=== PATIENT | female | born 1945 | race Caucasian/White ===

== ENCOUNTER 2017-04-16 16:31 | Emergency (ER) | payer BC ==
[~2017-04-16] VITALS: Ht 160 cm; Wt 67.4 kg
[~2017-04-16 16:31] MED LIST: ATR25 PO; CGN1 PO; CLON0.5T3 PO; CLON1TAB3 PO; CLR10 PO; ESCI1TAB10 PO; FLUV100T12 PO; GLC500 PO; LEVO125T57 PO; PANT40TA PO; RISP0.5T10 PO; RISP1TAB68 PO; SIMV80TA2 PO
[2017-04-16 16:37] VITALS: TEMP 37; Ht 160 cm; Wt 67.4 kg
[2017-04-16] MEDS ORDERED: LORAZEPAM 0.5 MG TAB SL STA (16:54)
[2017-04-16] MEDS ORDERED: SODIUM CHLORIDE 0.9% 500ML 500 ML IV STA (16:54)
[2017-04-16] MEDS ORDERED: PROM25TA9 PO (17:18)
[2017-04-16] MEDS ORDERED: HYDRCRE28 TOP (17:18)
[2017-04-16] MEDS ORDERED: KETO0.5S33 OP (17:18)
[2017-04-16] MEDS ORDERED: SIMV40TA2 PO (17:18)
[2017-04-16] MEDS ORDERED: FAMO20TA11 PO (17:18)
[2017-04-16] MEDS ORDERED: CYAN10005 PO (17:18)
[2017-04-16] MEDS ORDERED: DICY10CA55 PO (17:18)
[2017-04-16] MEDS ORDERED: LISI-729 PO (17:18)
[2017-04-16] MEDS ORDERED: PROM1SUP19 PR (17:18)
[2017-04-16] MEDS ORDERED: SERT50TA PO (17:18)
[2017-04-16] MEDS ORDERED: FE B28CA PO (17:18)
[2017-04-16] MEDS ORDERED: LEVO75TA PO (17:18)
[2017-04-16] MEDS ORDERED: DORZ1SOL6 OP (17:18)
[2017-04-16 17:42] LABS: URINE APPEARANCE CLEAR (CLEAR); URINE BILIRUBIN NEG (NEG); URINE COLOR YELLOW; URINE EPITHELIAL CELL AUTO 20-30 /lpf (0-5); URINE NITRITE NEG (NEG); URINE SPECIFIC GRAVITY 1.024 (1.000-1.030); UROBILINOGEN NEG (NEG); ZZUR CULT IF INDIC CLEAN CATCH NO
[2017-04-16 17:45] LABS: MANUAL MICROSCOPIC REQUIRED? NO; REVIEW REQ? YES
[2017-04-16 18:06] LABS: BASO % 0.3 %; BASO ABS # 0.02 K/uL (0-0.2); COMPLETE YES; EOS % 0.8 %; HEMATOCRIT 34.8 % (37-47); IG% 0.1 %; LYMPH % 29.1 %; LYMPH ABS # 2.16 K/uL (1.2-3.4); MEAN CELL VOLUME 91.6 fL (80-100); MEAN CORPUSCULAR HEMOGLOBIN 30.3 pg (25-34); MEAN PLATELET VOLUME 8.3 fL (7.4-10.4); MONO % 5.8 %; NEUT % 63.9 %; PLATELET COUNT 265 K/uL (130-400); WHITE BLOOD COUNT 7.43 K/uL (4.8-10.8)
[2017-04-16 18:32] LABS: ALT/SGPT 18 U/L (12-78); AST/SGOT 10 U/L (15-37); BLOOD UREA NITROGEN 12 mg/dl (7-18); BUN/CREATININE RATIO 11.1 (10-20); CARBON DIOXIDE 29 mmol/L (21-32); CHLORIDE 106 mmol/L (98-107); GLUCOSE 124 mg/dl (70-99); MAGNESIUM 2.3 mg/dl (1.8-2.4); POTASSIUM 4.1 mmol/L (3.5-5.1); SODIUM 139 mmol/L (136-145)
[2017-04-16 18:38] LABS: ALKALINE PHOSPHATASE 63 U/L (45-117)
--- NOTE | 2017-04-16 18:46 | EMERGENCY ROOM VISIT NOTE ---
History Report prepared by Angel: Mary Vargas Under the Supervision of: Dr. Julio Cesar Betancur M.D. First contact with patient: 16:45 Chief Complaint: NAUSEA Stated Complaint: CRAMPS,NAUSEA History of Present Illness The patient is a 72 year old female who presents to the Emergency Room with complaints of worsening nausea for the past couple of weeks. The patient states that she has "bad nerves." She takes Zoloft, BuSpar, and Luvox for her anxiety. She was taking 0.5 mg BID of Ativan. Her psychiatrist recently took her off of the Ativan about 6-8 weeks ago. She states that he took her off of it "because I 'm old." The patient notes that since then she has been having worsening anxiety , diffuse lower abdominal cramping, and nausea. This has been pretty constant but worsening over the last 2 weeks and then much worse today. The patient denies any recent falls or injuries. She denies headache, urinary symptoms, and SI or HI. Source of History: patient Onset: the past 6-8 weeks Position: other (global) Quality: other (nausea) Timing: worsening Modifying Factors (Worsening): other (recent changes to medications) Associated Symptoms: + abdominal pain, No headache, No urinary symptoms Note: Pt notes worsening anxiety. Pt denies SI or HI. Review of Systems See HPI for pertinent positives & negatives. A total of 10 systems reviewed and were otherwise negative. Past Medical & Surgical Medical Problems: (1) Depressive disorder (2) Obsessive-compulsive disorder Family History Non-pertinent due to advanced age. Social History Smoking Status: Never Smoker Marital Status: Current/Historical Medications Scheduled Cyanocobalamin (Vitamin B-12), 1,000 MCG PO DAILY Dorzolamide Hcl-Timolol Maleat (Cosopt Oph), 1 DROPS OP BID Famotidine (Pepcid), 20 MG PO DAILY Fe Bisglycinate Chelate-Vit C- (Gentle Iron), 1 CAP PO DAILY Fluvoxamine Maleate (Luvox), 100 MG PO QAM Hydrocortisone (Rectal) (Proctozone-Hc), 1 APPLN TOP PRN Ketorolac Tromethamine (Ophth) (Acular Oph), 1 DROP OP QID Levothyroxine Sodium (Synthroid), 75 MCG PO DAILY Lisinopril (Zestril), 5 MG PO DAILY Sertraline (Zoloft), 50 MG PO DAILY Simvastatin (Zocor), 40 MG PO QPM Scheduled PRN Dicyclomine Hcl (Bentyl), 10 MG PO Q6H PRN for cramping Promethazine (Phenergan Suppository), 25 MG NM Q8 PRN for Nausea Promethazine Hcl (Phenergan), 25 MG PO TID PRN for Nausea Allergies Coded Allergies: Penicillins (Verified Allergy, Mild, UNK, 10/30/11) Physical Exam Vital Signs Date Time Temp Pulse Resp B/P Pulse Ox O2 Delivery O2 Flow Rate FiO2 04/16/17 18:56 78 18 145/82 98 04/16/17 16:37 37.0 88 20 131/75 98 Room Air Physical Exam GENERAL: Patient is anxious appearing and in minimal distress. HEENT: No acute trauma, normocephalic atraumatic, mucous membranes moist, no nasal congestion, no scleral icterus. NECK: No stridor, no adenopathy, no meningismus, trachea is midline. LUNGS: No dyspnea. Clear to auscultation and equal bilaterally. No wheeze, no rhonchi. HEART: Regular rate and rhythm. No murmurs, rubs, gallops appreciated. ABDOMEN: Soft, vague suprapubic tenderness to palpation, bowel sounds positive, no masses appreciated, no peritonitis. BACK: No midline tenderness, no CVA tenderness EXTREMITIES: Normal motion all extremities, no cyanosis, no edema. NEUROLOGIC: Alert and oriented, no acute motor or sensory deficits, no focal weakness, cranial nerves grossly intact. SKIN: No rash, no jaundice, no diaphoresis. Medical Decision & Procedures Laboratory Results 04/16/17 17:54 Red Blood Count 3.80, Mean Corpuscular Volume 91.6, Mean Corpuscular Hemoglobin 30.3, Mean Corpuscular Hemoglobin Concent 33.0, Mean Platelet Volume 8.3, Neutrophils (%) (Auto) 63.9, Lymphocytes (%) (Auto) 29.1, Monocytes (%) (Auto) 5.8, Eosinophils (%) (Auto) 0.8, Basophils (%) (Auto) 0.3, Neutrophils # (Auto) 4.75, Lymphocytes # (Auto) 2.16, Monocytes # (Auto) 0.43, Eosinophils # (Auto) 0.06, Basophils # (Auto) 0.02 04/16/17 17:54 Test 04/16/17 17:16 04/16/17 17:54 Urine Color YELLOW Urine Appearance CLEAR (CLEAR) Urine pH 5.0 (4.5-7.5) Urine Specific [place] 1.024 (1.000-1.030) Urine Protein NEG (NEG) Urine Glucose (UA) NEG (NEG) Urine Ketones TRACE (NEG) Urine Occult Blood NEG (NEG) Urine Nitrite NEG (NEG) Urine Bilirubin NEG (NEG) Urine Urobilinogen NEG (NEG) Urine Leukocyte Esterase TRACE (NEG) Urine WBC (Auto) 1-5 /hpf (0-5) Urine RBC (Auto) 0-4 /hpf (0-4) Urine Hyaline Casts (Auto) 1-5 /lpf (0-5) Urine Epithelial Cells (Auto) 20-30 /lpf (0-5) Urine Bacteria (Auto) NEG (NEG) Urine Crystals CALCIUM OXALATE (NONE White Blood Count 7.43 K/uL (4.8-10.8) Red Blood Count 3.80 M/uL (4.2-5.4) Hemoglobin 11.5 g/dL (12.0-16.0) Hematocrit 34.8 % (37-47) Mean Corpuscular Volume 91.6 fL (80-100) Mean Corpuscular Hemoglobin 30.3 pg (25-34) Mean Corpuscular Hemoglobin Concent 33.0 g/dl (32-36) Platelet Count 265 K/uL (130-400) Mean Platelet Volume 8.3 fL (7.4-10.4) Neutrophils (%) (Auto) 63.9 % Lymphocytes (%) (Auto) 29.1 % Monocytes (%) (Auto) 5.8 % Eosinophils (%) (Auto) 0.8 % Basophils (%) (Auto) 0.3 % Neutrophils # (Auto) 4.75 K/uL (1.4-6.5) Lymphocytes # (Auto) 2.16 K/uL (1.2-3.4) Monocytes # (Auto) 0.43 K/uL (0.11-0.59) Eosinophils # (Auto) 0.06 K/uL (0-0.5) Basophils # (Auto) 0.02 K/uL (0-0.2) RDW Standard Deviation 44.5 fL (36.4-46.3) RDW Coefficient of Variation 13.3 % (11.5-14.5) Immature Granulocyte % (Auto) 0.1 % Immature Granulocyte # (Auto) 0.01 K/uL (0.00-0.02) Anion Gap 4.0 mmol/L (3-11) Est Creatinine Clear Calc Drug Dose 41.4 ml/min Estimated GFR () 57.3 Estimated GFR (Non- 49.4 BUN/Creatinine Ratio 11.1 (10-20) Calcium Level 9.0 mg/dl (8.5-10.1) Magnesium Level 2.3 mg/dl (1.8-2.4) Total Bilirubin 0.2 mg/dl (0.2-1) Direct Bilirubin < 0.1 mg/dl (0-0.2) Aspartate Amino Transf (AST/SGOT) 10 U/L (15-37) Alanine Aminotransferase (ALT/SGPT) 18 U/L (12-78) Alkaline Phosphatase 63 U/L (45-117) Troponin I < 0.015 ng/ml (0-0.045) Total Protein 6.8 gm/dl (6.4-8.2) Albumin 3.9 gm/dl (3.4-5.0) Lipase 186 U/L (73-393) Laboratory results as reviewed by me. Medications Administered Medications (Trade) Dose Ordered Sig/Crys Route Start Time Stop Time Status Last Admin Dose Admin Lorazepam 0.5 mg 0.5 mg NOW STAT SL 04/16/17 16:54 04/16/17 16:57 DC 04/16/17 16:54 0.5 MG Sodium Chloride (Nss 500ml) 500 ml @ 999 mls/hr Q31M STAT IV 04/16/17 16:54 04/16/17 17:24 DC 04/16/17 16:54 999 MLS/HR ECG Indication: nausea Rate (beats per minute): 73 Rhythm: normal sinus Findings: no acute ischemic change, no ectopy ED Course 5: The patient was evaluated in room A10. A complete history and physical exam was performed. 4: NSS 500 ml @ 999 mls/hr IV, Ativan 0.5 mg SL 1828: I reevaluated the patient. She feels vastly improved. She admits that she has many Ativan at home, which she will take if necessary. 184: I reassessed the patient at this time. She is feeling better and resting comfortably. I discussed the results and treatment plan with the patient. I answered all pertaining questions that she had. She expressed understanding and verbalized agreement. The patient will be discharged home. Medical Decision Differential: Sepsis, Infectious (UTI/Pneumonia/Meningitis/etc), Metabolic/ Electrolyte Abnormality, Cardiac, Hepatic, Endocrine, Toxicologic, Neurologic, amongst other pathologies entertained. 72 yr old pleasant female with long anxiety/mental health history who recently was taken off her Ativan cold turkey. Since then with worsening anxiety, tremors, fatigue, nausea, etc. Work-up is benign. She has complete resolution of symptoms with Ativan PO. Case Management in to talk to patient about outpatient follow up with Psychiatry. We discussed using Ativan sparingly at home, which she notes she has plenty of. She is aware the risks of them. She is aware she can return at any time if worsening or other concerns. Patient and daughter are comfortable with outpatient treatment. Impression Primary Impression: Anxiety Additional Impressions: Fatigue Dehydration Scribe Attestation The scribe's documentation has been prepared under my direction and personally reviewed by me in its entirety. I confirm that the note above accurately reflects all work, treatment, procedures, and medical decision making performed by me. Departure Information Dispostion Home / Self-Care Forms HOME CARE DOCUMENTATION FORM, IMPORTANT VISIT INFORMATION Patient Instructions Anxiety Body Response, My [facility] Additional Instructions We are always here to help. If you feel you can no longer handle your symptoms at home or feel further emergency evaluation is necessary, return for further evaluation or call 911. You have received a benzodiazepine pain medication. These medications may cause drowsiness and should not be used with other sedative medications. Do not drive, drink alcohol, perform dangerous activities, nor make important decisions after taking these medications. terminal gauger use or inappropriate use may lead to addiction. Problem Qualifiers Additional Impressions: Fatigue Fatigue type: unspecified Qualified Codes: R53.83 - Other fatigue
[2017-04-16 18:56] VITALS: BP 145/82; PULSE 78; O2SAT 98
== END 2017-04-16 18:58 | disposition home or self-care (01) ==
LOC: C.EDB 16:32 → C.EDA 18:58
DX: F41.9 Anxiety disorder, unspecified (principal); E86.0 Dehydration; R53.83 Other fatigue; Z79.899 Other long term (current) drug therapy; F32.9 Major depressive disorder, single episode, unspecified; F42.9 Obsessive-compulsive disorder, unspecified

== ENCOUNTER 2017-04-22 11:28 | Emergency (ER) | payer BC ==
[~2017-04-22] VITALS: Ht 162.6 cm; Wt 67.1 kg
[~2017-04-22 11:28] MED LIST changes: -ATR25 PO; -CGN1 PO; -CLON0.5T3 PO; -CLON1TAB3 PO; -CLR10 PO; +CYAN10005 PO; +DICY10CA55 PO; +DORZ1SOL6 OP; -ESCI1TAB10 PO; +FAMO20TA11 PO; +FE B28CA PO; -GLC500 PO; +HYDRCRE28 TOP; +KETO0.5S33 OP; -LEVO125T57 PO; +LEVO75TA PO; +LISI-729 PO; -PANT40TA PO; +PROM1SUP19 PR; +PROM25TA9 PO; -RISP0.5T10 PO; -RISP1TAB68 PO; +SERT50TA PO; +SIMV40TA2 PO; -SIMV80TA2 PO
[2017-04-22 11:32] VITALS: TEMP 36.5; Ht 162.6 cm; Wt 67.1 kg
[2017-04-22] MEDS ORDERED: ONDA4TAB46 PO (12:00)
[2017-04-22] MEDS ORDERED: LORAZEPAM 0.5 MG TAB SL STA (12:07)
--- NOTE | 2017-04-22 12:09 | EMERGENCY ROOM VISIT NOTE ---
History Report prepared by Angel: Yumiko Shore Under the Supervision of: Dr. José Luis Fermin M.D. First contact with patient: 11:58 Chief Complaint: MENTAL HEALTH EVALUATION Stated Complaint: CRAMPS History of Present Illness The patient is a 72 year old female who presents to the Emergency Room for a mental health evaluation after feeling anxious and depressed beginning 3 months ago. The patient reports that she was taken off of Lorazepam 3 months ago and since then she has been feeling nausea, cramping from anxiety, and increasing depression. She denies any suicidal or homicidal ideation. She notes that she has been seen inpatient for psychiatric care before. The patient states that she recently was prescribed Lorazepam again but has had difficulty filling her prescription. Source of History: patient Onset: 3 months ago Position: other (mental health) Quality: other (anxiety and depression) Timing: constant, worsening Modifying Factors (Worsening): other (no Lorazepam) Associated Symptoms: + nausea Note: She complains of cramping from anxiety, and increasing depression. She denies any suicidal or homicidal ideation. Review of Systems See HPI for pertinent positives & negatives. A total of 10 systems reviewed and were otherwise negative. Past Medical & Surgical Medical Problems: (1) Depressive disorder (2) Obsessive-compulsive disorder Family History No pertinent family history stated. Social History Smoking Status: Never Smoker Marital Status: Housing Status: lives with significant other Occupation Status: retired Current/Historical Medications Scheduled Cyanocobalamin (Vitamin B-12), 1,000 MCG PO DAILY Dorzolamide Hcl-Timolol Maleat (Cosopt Oph), 1 DROPS OP BID Famotidine (Pepcid), 20 MG PO DAILY Fe Bisglycinate Chelate-Vit C- (Gentle Iron), 1 CAP PO DAILY Fluvoxamine Maleate (Luvox), 100 MG PO QAM Hydrocortisone (Rectal) (Proctozone-Hc), 1 APPLN TOP PRN Ketorolac Tromethamine (Ophth) (Acular Oph), 1 DROP OP QID Levothyroxine Sodium (Synthroid), 75 MCG PO DAILY Lisinopril (Zestril), 5 MG PO DAILY Metformin Hcl Er (Glucophage Er), 1,000 MG PO BID Sertraline (Zoloft), 50 MG PO DAILY Simvastatin (Zocor), 40 MG PO QPM Scheduled PRN Dicyclomine Hcl (Bentyl), 10 MG PO Q6H PRN for cramping Hydroxyzine Pamoate (Vistaril), 1 CAP PO TID PRN for Anxiety Ondansetron Hcl (Zofran), 4 MG PO UD PRN for Nausea Promethazine Hcl (Phenergan), 25 MG PO TID PRN for Nausea Allergies Coded Allergies: Penicillins (Verified Allergy, Mild, UNK, 04/22/17) Physical Exam Vital Signs Date Time Temp Pulse Resp B/P Pulse Ox O2 Delivery O2 Flow Rate FiO2 04/22/17 19:18 72 18 155/80 96 04/22/17 17:06 69 18 157/84 96 Room Air 04/22/17 13:30 82 16 132/75 96 Room Air 04/22/17 11:32 36.5 84 18 148/82 96 Room Air Physical Exam GENERAL: Patient is a healthy-appearing well-nourished HEAD: Normocephalic atraumatic EYES: Ocular movements intact pupils equal and react to light OROPHARYNX mucous membranes are moist no exudates present no erythema or edema present NECK: Supple no nuchal rigidity CHEST: Good equal expansion LUNGS: Clear and equal to auscultation CARDIAC: Normal S1 and S2 ABDOMEN: Soft nontender no guarding BACK: No CVA tenderness EXTREMITIES: No pain upon palpation normal muscle strength in all groups no clubbing cyanosis or edema NEURO: Patient is following commands is answering questions appropriately. Alert and oriented x3 Cranial Nerves 2-12 grossly intact PSYCH: No suicidal or homicidal ideation. Medical Decision & Procedures Laboratory Results 04/22/17 12:55 Red Blood Count 3.65, Mean Corpuscular Volume 91.2, Mean Corpuscular Hemoglobin 31.2, Mean Corpuscular Hemoglobin Concent 34.2, Mean Platelet Volume 8.2, Neutrophils (%) (Auto) 71.6, Lymphocytes (%) (Auto) 21.0, Monocytes (%) (Auto) 5.5, Eosinophils (%) (Auto) 1.3, Basophils (%) (Auto) 0.3, Neutrophils # (Auto) 4.99, Lymphocytes # (Auto) 1.46, Monocytes # (Auto) 0.38, Eosinophils # (Auto) 0.09, Basophils # (Auto) 0.02 04/22/17 12:55 Test 04/22/17 00:00 04/22/17 12:18 04/22/17 12:55 Urine Color YELLOW Urine Appearance CLEAR (CLEAR) Urine pH 7.5 (4.5-7.5) Urine Specific [place] 1.014 (1.000-1.030) Urine Protein NEG (NEG) Urine Glucose (UA) NEG (NEG) Urine Ketones NEG (NEG) Urine Occult Blood NEG (NEG) Urine Nitrite NEG (NEG) Urine Bilirubin NEG (NEG) Urine Urobilinogen NEG (NEG) Urine Leukocyte Esterase NEG (NEG) Urine Opiates Screen NEG (NEG) Urine Methadone, Qualitative NEG (NEG) Urine Barbiturates NEG (NEG) Urine Phencyclidine (PCP) Level NEG (NEG) Ur Amphetamine/Methamphetamine NEG (NEG) MDMA (Ecstasy) Screen NEG (NEG) Urine Benzodiazepines Screen NEG (NEG) Urine Cocaine Metabolite NEG (NEG) Urine Marijuana (THC) NEG (NEG) Bedside Glucose 125 mg/dl (70-90) White Blood Count 6.96 K/uL (4.8-10.8) Red Blood Count 3.65 M/uL (4.2-5.4) Hemoglobin 11.4 g/dL (12.0-16.0) Hematocrit 33.3 % (37-47) Mean Corpuscular Volume 91.2 fL (80-100) Mean Corpuscular Hemoglobin 31.2 pg (25-34) Mean Corpuscular Hemoglobin Concent 34.2 g/dl (32-36) Platelet Count 206 K/uL (130-400) Mean Platelet Volume 8.2 fL (7.4-10.4) Neutrophils (%) (Auto) 71.6 % Lymphocytes (%) (Auto) 21.0 % Monocytes (%) (Auto) 5.5 % Eosinophils (%) (Auto) 1.3 % Basophils (%) (Auto) 0.3 % Neutrophils # (Auto) 4.99 K/uL (1.4-6.5) Lymphocytes # (Auto) 1.46 K/uL (1.2-3.4) Monocytes # (Auto) 0.38 K/uL (0.11-0.59) Eosinophils # (Auto) 0.09 K/uL (0-0.5) Basophils # (Auto) 0.02 K/uL (0-0.2) RDW Standard Deviation 43.5 fL (36.4-46.3) RDW Coefficient of Variation 13.0 % (11.5-14.5) Immature Granulocyte % (Auto) 0.3 % Immature Granulocyte # (Auto) 0.02 K/uL (0.00-0.02) Anion Gap 5.0 mmol/L (3-11) Est Creatinine Clear Calc Drug Dose 42.3 ml/min Estimated GFR () 57.3 Estimated GFR (Non- 49.4 BUN/Creatinine Ratio 11.1 (10-20) Calcium Level 8.7 mg/dl (8.5-10.1) Total Bilirubin 0.5 mg/dl (0.2-1) Direct Bilirubin 0.1 mg/dl (0-0.2) Aspartate Amino Transf (AST/SGOT) 9 U/L (15-37) Alanine Aminotransferase (ALT/SGPT) 17 U/L (12-78) Alkaline Phosphatase 70 U/L (45-117) Total Protein 6.8 gm/dl (6.4-8.2) Albumin 3.9 gm/dl (3.4-5.0) Thyroid Stimulating Hormone (TSH) 3.100 uIu/ml (0.300-4.500) Ethyl Alcohol mg/dL < 3.0 mg/dl (0-3) Labs reviewed by ED physician. Medications Administered Medications (Trade) Dose Ordered Sig/Crys Route Start Time Stop Time Status Last Admin Dose Admin Lorazepam (Ativan Tab) 0.5 mg NOW STAT SL 04/22/17 12:07 04/22/17 12:08 DC 04/22/17 12:15 0.5 MG Ondansetron HCl (Zofran Odt) 4 mg ONE STAT PO 04/22/17 17:29 04/22/17 17:31 DC 04/22/17 17:53 4 MG Hydroxyzine HCl (Vistaril Tab) 25 mg NOW STAT PO 04/22/17 17:29 04/22/17 17:31 DC 04/22/17 17:53 25 MG Dicyclomine HCl (Bentyl Tab) 10 mg NOW STAT PO 04/22/17 17:29 04/22/17 17:31 DC 04/22/17 17:54 10 MG Metformin HCl (Glucophage Tab) 1,000 mg NOW STAT PO 04/22/17 17:31 04/22/17 17:32 DC 04/22/17 17:54 1,000 MG ED Course 1158: Past medical records reviewed. The patient was evaluated in room A5. A complete history and physical examination was performed. 1207: Ativan Tab 0.5mg SL. 1729: Bentyl Tab 10mg PO, Vistaril Tab 25mg PO, Zofran Odt 4mg PO. 1731: Metformin HCl 1000mg PO. 1739: The patient will be transferred to [facility]. 1804: Upon reexamination the patient is doing well. I discussed results and treatment plan with the patient. She verbalizes agreement and understanding. The patient will be evaluated at [facility] for further management. Medical Decision Differential diagnosis: Etiologies such as mood disorder, infection, hypoglycemia, electrolyte abnormalities, cardiac sources, intracerebral event, toxicologic, neurologic, as well as others were entertained. This is a 72-year-old female who presents emergency department complaining of anxiety. The patient denies being suicidal or homicidal. She was given Ativan for her anxiety in the emergency department. I do believe that the patient can be discharged home for follow-up with her therapist. The patient was also independently evaluated by case management who also felt that the patient could be accepted at [facility]. Patient was in agreement with the treatment plan. Impression Primary Impression: Mood disorder Scribe Attestation The scribe's documentation has been prepared under my direction and personally reviewed by me in its entirety. I confirm that the note above accurately reflects all work, treatment, procedures, and medical decision making performed by me. Departure Information Dispostion Mental Health Acute Care Referrals No Doctor, Assigned (PCP) Patient Instructions My [facility]
[2017-04-22 12:40] LABS: URINE APPEARANCE CLEAR (CLEAR); URINE BILIRUBIN NEG (NEG); URINE COLOR YELLOW; URINE NITRITE NEG (NEG); URINE PH 7.5 (4.5-7.5); URINE SPECIFIC GRAVITY 1.014 (1.000-1.030); UROBILINOGEN NEG (NEG)
[2017-04-22] MEDS ORDERED: HYDR25CA PO (12:44)
[2017-04-22 12:56] LABS: MANUAL MICROSCOPIC REQUIRED? NO; REVIEW REQ? NO
[2017-04-22 13:06] LABS: BASO % 0.3 %; BASO ABS # 0.02 K/uL (0-0.2); COMPLETE YES; EOS % 1.3 %; HEMATOCRIT 33.3 % (37-47); IG% 0.3 %; LYMPH ABS # 1.46 K/uL (1.2-3.4); MEAN CELL VOLUME 91.2 fL (80-100); MEAN CORPUSCULAR HEMOGLOBIN 31.2 pg (25-34); MEAN CORPUSCULAR HGB CONC 34.2 g/dl (32-36); MEAN PLATELET VOLUME 8.2 fL (7.4-10.4); MONO % 5.5 %; NEUT % 71.6 %; PLATELET COUNT 206 K/uL (130-400); RED BLOOD COUNT 3.65 M/uL (4.2-5.4); WHITE BLOOD COUNT 6.96 K/uL (4.8-10.8)
[2017-04-22 13:26] LABS: BUN/CREATININE RATIO 11.1 (10-20); CALCIUM 8.7 mg/dl (8.5-10.1); CREATININE 1.1 mg/dl (0.60-1.20); POTASSIUM 4.9 mmol/L (3.5-5.1)
[2017-04-22 13:28] LABS: BENZODIAZEPINE, URINE NEG (NEG); COCAINE,URINE NEG (NEG); PHENCYCLIDINE, URINE NEG (NEG)
[2017-04-22 13:35] LABS: THYROID STIMULATING HORMONE 3.1 uIu/ml (0.300-4.500)
[2017-04-22] MEDS ORDERED: METF500T5 PO (17:27)
[2017-04-22] MEDS ORDERED: ONDANSETRON 4MG OD TAB PO STA (17:29)
[2017-04-22] MEDS ORDERED: hydrOXYzine HCL 25 MG TAB PO STA (17:29)
[2017-04-22] MEDS ORDERED: DICYCLOMINE HCL 20 MG TAB PO STA (17:29)
[2017-04-22] MEDS ORDERED: METFORMIN HCL 500 MG TAB PO STA (17:31)
[2017-04-22 19:18] VITALS: BP 155/80; PULSE 72; O2SAT 96
== END 2017-04-22 19:10 ==
LOC: C.EDB 11:29 → C.EDA 19:10
DX: F39 Unspecified mood [affective] disorder (principal); F42.9 Obsessive-compulsive disorder, unspecified; Z79.899 Other long term (current) drug therapy

== ENCOUNTER 2017-06-07 14:41 | Emergency (ER) | payer BC ==
[~2017-06-07] VITALS: Ht 160 cm; Wt 68.4 kg
[~2017-06-07 14:41] MED LIST changes: +HYDR25CA PO; +METF500T5 PO; +ONDA4TAB46 PO; -PROM1SUP19 PR
[2017-06-07 14:48] VITALS: TEMP 36.6; Ht 160 cm; Wt 68.4 kg
--- NOTE | 2017-06-07 15:45 | EMERGENCY ROOM VISIT NOTE ---
History Report prepared by Angel: Cheli Parisi Under the Supervision of: Dr. Mario Perry M.D. First contact with patient: 15:04 Chief Complaint: MENTAL HEALTH EVALUATION Stated Complaint: ANXIETY History of Present Illness The patient is a 72 year old female who presents to the Emergency Room for a mental health evaluation. The patient states that she has suffered from anxiety and depression for many years. Her anxiety has been worsening since December and she has been experiencing anxiety attacks everyday. She notes these attacks to cause daily worrying and nausea. The patient was on Lorazepam 1 mg a day until she was taken off the end of December by her old psychiatrist. She states since then her symptoms have worsened. Today the patient also experienced lightheadedness with her anxiety attack. She had trouble getting out of bed, staggering gait and trouble balancing. The patient has switched psychiatrist and was put on a new medication which she states is not helping. She states that she was at [facility] during the end of March for an anxiety attack. She denies hallucinations, suicidal ideation, homicidal ideation, fevers, chills, shortness of breath or chest pain. Source of History: patient Onset: today Position: other (global) Quality: other (anxiety attack) Associated Symptoms: + nausea, No fevers, No chills, No SOB Note: The patient is experiencing lightheadedness. Review of Systems All systems have been listed, reviewed, and are negative other than those previously mentioned. Please see Additional Medical History Sheet. Past Medical & Surgical Medical Problems: (1) Depressive disorder (2) Obsessive-compulsive disorder Family History Patient reports no known family medical history. Social History Smoking Status: Never Smoker Marital Status: Housing Status: lives with significant other Occupation Status: retired Current/Historical Medications Scheduled Cyanocobalamin (Vitamin B-12), 1,000 MCG PO DAILY Famotidine (Pepcid), 40 MG PO DAILY Fe Bisglycinate Chelate-Vit C- (Gentle Iron), 1 CAP PO DAILY Levothyroxine Sodium (Synthroid), 75 MCG PO DAILY Lisinopril (Zestril), 5 MG PO DAILY Metformin Hcl Er (Glucophage Er), 1,000 MG PO BID Simvastatin (Zocor), 40 MG PO QPM Trazodone Hcl (Trazodone), 50 MG PO HS Scheduled PRN Chlorpromazine Hcl (Thorazine), 10 MG PO TID PRN for Anxiety Dicyclomine Hcl (Bentyl), 10 MG PO Q6H PRN for cramping Hydroxyzine Pamoate (Vistaril), 1 CAP PO TID PRN for Anxiety Promethazine Hcl (Phenergan), 25 MG PO TID PRN for Nausea Allergies Coded Allergies: Penicillins (Verified Allergy, Mild, UNK, 06/07/17) Physical Exam Vital Signs Date Time Temp Pulse Resp B/P (MAP) Pulse Ox O2 Delivery O2 Flow Rate FiO2 06/07/17 19:26 74 19 121/74 99 06/07/17 14:48 36.6 90 17 124/68 99 Room Air Physical Exam GENERAL: Patient awake, alert, oriented x 3. Patient follows commands. Patient does not appear toxic. Patient is adequately hydrated and well- nourished. SKIN: No erythema, pallor, cyanosis or rash HEENT: Normal head, pupils equal, reactive to light and accommodation. Ears normal. Oral cavity and posterior pharynx appear normal. Neck: Without adenopathy, no neck vein distention. LUNGS: Clear to auscultation. No wheezes, no rales, no rhonchi. HEART: No murmurs. No gallops. No rubs ABDOMEN: No masses, no rebound, no hepatomegaly or splenomegaly. EXTREMITIES: No signs of trauma. No pedal or pretibial edema. No calf or thigh tenderness. NEUROLOGIC: Cranial nerves II-XII within normal limits. No gross motor sensory function deficits. PSYCH: The patient appears anxious. She denies suicidal or homicidal ideation. Medical Decision & Procedures Laboratory Results 06/07/17 16:10 06/07/17 16:10 Test 06/07/17 16:10 Red Blood Count 3.78 M/uL (4.2-5.4) Mean Corpuscular Volume 87.3 fL (80-100) Mean Corpuscular Hemoglobin 29.9 pg (25-34) Mean Corpuscular Hemoglobin Concent 34.2 g/dl (32-36) RDW Standard Deviation 39.5 fL (36.4-46.3) RDW Coefficient of Variation 12.3 % (11.5-14.5) Mean Platelet Volume 8.3 fL (7.4-10.4) Anion Gap 8.0 mmol/L (3-11) Est Creatinine Clear Calc Drug Dose 41.6 ml/min Estimated GFR () 57.3 Estimated GFR (Non- 49.4 BUN/Creatinine Ratio 13.7 (10-20) Calcium Level 8.9 mg/dl (8.5-10.1) Total Bilirubin 0.3 mg/dl (0.2-1) Aspartate Amino Transf (AST/SGOT) 8 U/L (15-37) Alanine Aminotransferase (ALT/SGPT) 17 U/L (12-78) Alkaline Phosphatase 71 U/L (45-117) Total Protein 6.5 gm/dl (6.4-8.2) Albumin 3.8 gm/dl (3.4-5.0) Globulin 2.7 gm/dl (2.5-4.0) Albumin/Globulin Ratio 1.4 (0.9-2) Thyroid Stimulating Hormone (TSH) 3.640 uIu/ml (0.300-4.500) Laboratory results as stated above per my review. ED Course 1538: Past medical records reviewed. The patient was evaluated in room A6. A complete history and physical examination was performed. 1610: equipment manager is meeting with the patient to discuss possible options. 1917: Upon reevaluation, the patient appeared to have improvement of her symptoms. I discussed today's findings with her. She verbalized agreement of the treatment plan. She was discharged home. Medical Decision Nurses notes reviewed. Medical history sheet reviewed. Differential diagnosis includes but is not limited to: anxiety, anemia, hypothyroidism, orthostasis, hypotension, medication reaction. Medication Reconciliation: I attest that I have personally reviewed the patient' s current medication list. Blood pressure Screening: Patient was found to have normal blood pressure on screening and does not require follow up. The patient is requesting to be placed back on Ativan. She was originally taken off of Ativan by her psychiatrist. She switched psychiatrists and her second psychiatrist also refused to put her back on Ativan. She then requested that she be admitted to the hospital for medication adjustment. The patient was evaluated by mental health but they felt that she did not meet criteria for admission. Multiple labs were obtained. Please see above. The patient was felt safe to return home. She was encouraged to increase the Vistaril from 25 mg 3 times a day to 4 times a day. The patient was encouraged to follow-up with her psychiatrist and family physician as soon as possible. Impression Primary Impression: Anxiety Scribe Attestation The scribe's documentation has been prepared under my direction and personally reviewed by me in its entirety. I confirm that the note above accurately reflects all work, treatment, procedures, and medical decision making performed by me. Departure Information Dispostion Home / Self-Care Referrals Willie Mathis M.D. (PCP) Forms HOME CARE DOCUMENTATION FORM, IMPORTANT VISIT INFORMATION Patient Instructions My [facility] Additional Instructions Continue all of your current medications as prescribed except for Vistaril. Increase Vistaril to 25 mg 4 times a day. Follow-up with your psychiatrist and family physician as soon as possible.
[2017-06-07] MEDS ORDERED: CHLO1TAB38 PO (16:21)
[2017-06-07 16:28] LABS: MEAN CELL VOLUME 87.3 fL (80-100); MEAN CORPUSCULAR HEMOGLOBIN 29.9 pg (25-34); MEAN CORPUSCULAR HGB CONC 34.2 g/dl (32-36); MEAN PLATELET VOLUME 8.3 fL (7.4-10.4); PLATELET COUNT 223 K/uL (130-400); RED BLOOD COUNT 3.78 M/uL (4.2-5.4); WHITE BLOOD COUNT 6.54 K/uL (4.8-10.8)
[2017-06-07 16:47] LABS: BUN/CREATININE RATIO 13.7 (10-20); CALCIUM 8.9 mg/dl (8.5-10.1); CREATININE 1.1 mg/dl (0.60-1.20); POTASSIUM 4.5 mmol/L (3.5-5.1)
[2017-06-07 16:58] LABS: ALB/GLOB RATIO 1.4 (0.9-2); THYROID STIMULATING HORMONE 3.64 uIu/ml (0.300-4.500)
[2017-06-07] MEDS ORDERED: TRAZ50TA35 PO (18:52)
[2017-06-07 19:26] VITALS: BP 121/74; PULSE 74; O2SAT 99
== END 2017-06-07 19:27 | disposition home or self-care (01) ==
LOC: C.EDB 14:42 → C.EDA 19:27
DX: F41.9 Anxiety disorder, unspecified (principal); F32.9 Major depressive disorder, single episode, unspecified; F42.9 Obsessive-compulsive disorder, unspecified

== ENCOUNTER → 2018-01-01 | Outpatient (CLI) | payer BC ==
[~2018-01-01] MED LIST changes: +CHLO1TAB38 PO; -DORZ1SOL6 OP; -FLUV100T12 PO; -HYDRCRE28 TOP; -KETO0.5S33 OP; -ONDA4TAB46 PO; -SERT50TA PO; +TRAZ50TA35 PO
[2018-01-01 17:46] LABS: BASO % 0.2 %; BASO ABS # 0.01 K/uL (0-0.2); EOS % 0.2 %; EOS ABS # 0.01 K/uL (0-0.5); HEMATOCRIT 33.4 % (37-47); HEMOGLOBIN 11.3 g/dL (12.0-16.0); IG# 0.01 K/uL (0.00-0.02); LYMPH % 18.6 %; LYMPH ABS # 1.24 K/uL (1.2-3.4); MEAN CELL VOLUME 90.8 fL (80-100); MEAN CORPUSCULAR HEMOGLOBIN 30.7 pg (25-34); MEAN CORPUSCULAR HGB CONC 33.8 g/dl (32-36); MEAN PLATELET VOLUME 8.9 fL (7.4-10.4); MONO % 7.5 %; NEUT % 73.3 %; NEUT ABS # 4.89 K/uL (1.4-6.5); PLATELET COUNT 236 K/uL (130-400); RED CELL DISTRIBUTION WIDTH SD 42.8 fL (36.4-46.3); WHITE BLOOD COUNT 6.66 K/uL (4.8-10.8)
[2018-01-01 18:16] LABS: ALBUMIN 3.6 gm/dl (3.4-5.0); ALT/SGPT 17 U/L (12-78); AST/SGOT 10 U/L (15-37); BLOOD UREA NITROGEN 16 mg/dl (7-18); CALCIUM 8.5 mg/dl (8.5-10.1); CARBON DIOXIDE 28 mmol/L (21-32); CREATININE 1.13 mg/dl (0.60-1.20); GLUCOSE 121 mg/dl (70-99); POTASSIUM 4.3 mmol/L (3.5-5.1); SODIUM 129 mmol/L (136-145)
[2018-01-01 18:29] LABS: ALKALINE PHOSPHATASE 64 U/L (45-117); CHOLESTEROL 140 mg/dl (0-200); LDL CHOLESTEROL CALCULATED 43 mg/dl; TOTAL PROTEIN 6.6 gm/dl (6.4-8.2)
[2018-01-02 07:18] LABS: HEMOGLOBIN A1C 6.2 % (4.5-5.6)
== END | disposition home or self-care (01) ==
LOC: C.LABMFLN 10:59
PROVIDERS: ATTEND Family Medicine
DX: E11.22 Type 2 diabetes mellitus with diabetic chronic kidney disease (principal); N18.3 Chronic kidney disease, stage 3 (moderate); D63.1 Anemia in chronic kidney disease; R35.0 Frequency of micturition; E03.9 Hypothyroidism, unspecified; E78.5 Hyperlipidemia, unspecified

== ENCOUNTER → 2018-01-15 | Outpatient (CLI) | payer BC ==
[2018-01-15 13:25] LABS: BLOOD UREA NITROGEN 20 mg/dl (7-18); CALCIUM 8.8 mg/dl (8.5-10.1); CARBON DIOXIDE 26 mmol/L (21-32); CREATININE 1.18 mg/dl (0.60-1.20); GLUCOSE 206 mg/dl (70-99); POTASSIUM 3.8 mmol/L (3.5-5.1); SODIUM 135 mmol/L (136-145)
== END | disposition home or self-care (01) ==
LOC: C.LABMFLN 09:02
PROVIDERS: ATTEND Family Medicine
DX: E87.1 Hypo-osmolality and hyponatremia (principal)

== ENCOUNTER → 2018-03-11 | Outpatient (CLI) | payer BC ==
[2018-03-11 13:29] LABS: BLOOD UREA NITROGEN 19 mg/dl (7-18); CALCIUM 8.9 mg/dl (8.5-10.1); CARBON DIOXIDE 27 mmol/L (21-32); CREATININE 1.11 mg/dl (0.60-1.20); GLUCOSE 135 mg/dl (70-99); POTASSIUM 4.3 mmol/L (3.5-5.1); SODIUM 131 mmol/L (136-145)
== END | disposition home or self-care (01) ==
LOC: C.LABMFLN 10:06
PROVIDERS: ATTEND Family Medicine
DX: E87.1 Hypo-osmolality and hyponatremia (principal)

== ENCOUNTER → 2018-03-18 | Outpatient (CLI) | payer BC ==
[2018-03-18 13:55] LABS: BLOOD UREA NITROGEN 24 mg/dl (7-18); CALCIUM 8.8 mg/dl (8.5-10.1); CARBON DIOXIDE 27 mmol/L (21-32); CREATININE 1.19 mg/dl (0.60-1.20); GLUCOSE 186 mg/dl (70-99); POTASSIUM 4.2 mmol/L (3.5-5.1); SODIUM 134 mmol/L (136-145)
== END | disposition home or self-care (01) ==
LOC: C.LABMFLN 08:13
PROVIDERS: ATTEND Family Medicine
DX: E87.1 Hypo-osmolality and hyponatremia (principal)

== ENCOUNTER → 2018-03-31 | Outpatient (CLI) | payer BC ==
[2018-03-31 13:19] LABS: BLOOD UREA NITROGEN 21 mg/dl (7-18); CALCIUM 8.8 mg/dl (8.5-10.1); CARBON DIOXIDE 27 mmol/L (21-32); CREATININE 1.11 mg/dl (0.60-1.20); GLUCOSE 166 mg/dl (70-99); POTASSIUM 4.3 mmol/L (3.5-5.1); SODIUM 136 mmol/L (136-145)
== END | disposition home or self-care (01) ==
LOC: C.LABMFLN 08:29
PROVIDERS: ATTEND Family Medicine
DX: E11.22 Type 2 diabetes mellitus with diabetic chronic kidney disease (principal)

== ENCOUNTER → 2018-06-17 | Outpatient (CLI) | payer BC ==
[2018-06-17 13:16] LABS: BASO % 0.2 %; BASO ABS # 0.01 K/uL (0-0.2); EOS % 0.8 %; EOS ABS # 0.04 K/uL (0-0.5); HEMATOCRIT 34.3 % (37-47); HEMOGLOBIN 11.5 g/dL (12.0-16.0); IG# 0.01 K/uL (0.00-0.02); LYMPH % 18.2 %; LYMPH ABS # 0.87 K/uL (1.2-3.4); MEAN CELL VOLUME 89.1 fL (80-100); MEAN CORPUSCULAR HEMOGLOBIN 29.9 pg (25-34); MEAN CORPUSCULAR HGB CONC 33.5 g/dl (32-36); MEAN PLATELET VOLUME 9.1 fL (7.4-10.4); MONO % 6.5 %; MONO ABS # 0.31 K/uL (0.11-0.59); NEUT % 74.1 %; NEUT ABS # 3.53 K/uL (1.4-6.5); PLATELET COUNT 221 K/uL (130-400); RED CELL DISTRIBUTION WIDTH CV 13.1 % (11.5-14.5); RED CELL DISTRIBUTION WIDTH SD 41.9 fL (36.4-46.3); WHITE BLOOD COUNT 4.77 K/uL (4.8-10.8)
[2018-06-17 14:06] LABS: ALBUMIN 3.6 gm/dl (3.4-5.0); ALKALINE PHOSPHATASE 61 U/L (45-117); ALT/SGPT 17 U/L (12-78); AST/SGOT 10 U/L (15-37); BLOOD UREA NITROGEN 13 mg/dl (7-18); CALCIUM 8.7 mg/dl (8.5-10.1); CARBON DIOXIDE 27 mmol/L (21-32); CREATININE 1.03 mg/dl (0.60-1.20); GLUCOSE 202 mg/dl (70-99); POTASSIUM 4.5 mmol/L (3.5-5.1); SODIUM 134 mmol/L (136-145); TOTAL PROTEIN 6.5 gm/dl (6.4-8.2); TRANSFERRIN 284 mg/dl (200-360)
== END | disposition home or self-care (01) ==
LOC: C.LABMFLN 08:25
PROVIDERS: ATTEND Family Medicine
DX: E11.22 Type 2 diabetes mellitus with diabetic chronic kidney disease (principal); N18.3 Chronic kidney disease, stage 3 (moderate); E78.5 Hyperlipidemia, unspecified; E03.9 Hypothyroidism, unspecified; D63.1 Anemia in chronic kidney disease